=== PATIENT | female | born 1950 | race Caucasian/White ===

== ENCOUNTER → 2016-04-01 | Outpatient (CLI) | payer BC, OTHER ==
[~2016-04-01] MED LIST: ASPI81TA28 PO; Brimonidine Tartrate OPR; CETI10TA84 PO; CZR50 PO; INSDGI SC; INSU1INJ2; INSUINJ14 SC; LPD600 PO; METO1TAB69 PO; METO50TA7 PO; MRLP17 PO; NEPA0.6D OP; NEPAFENAC 0.3% OP; NRN100 PO; OMEG-54 PO; OMEP40CA41 PO; ONDA8TAB62 SL; PRDFOPS OPR; PREDNISOLONE OPR; RXC5 PO; TOLT2TAB9 PO
--- NOTE | 2016-04-01 14:48 | DIAGNOSTIC IMAGING REPORT ---
IV PYELOGRAM CLINICAL HISTORY: Nephrolithiasis. COMPARISON STUDY: Abdominal CT dated 03/29/2016. TECHNIQUE: An abdominal pay agent radiograph is performed. IVP pyelogram was then performed following the IV administration of IV contrast, tomographic images are acquired in the corticomedullary and excretory phases of enhancement. Overhead views of the renal collecting system and bladder were obtained in multiple obliquities both pre and post void. FINDINGS: The abdominal pay agent radiograph shows a nonobstructed abdominal bowel gas pattern. Numerous calcified phleboliths are seen in the pelvis. There is no clear radiographic evidence of nephrolithiasis. There is mild lumbosacral spondylosis. Following contrast administration there is symmetric renal cortical enhancement and contrast excretion. There is no hydronephrosis. There are no filling defects identified to suggest urothelial lesion within the renal pelvis bilaterally or along the course of the ureters. The bladder is normal as imaged. No significant post void residual is identified. IMPRESSION: 1. There is no evidence of nephrolithiasis. 2. Unremarkable IV pyelogram. See above. Electronically signed by: Jason Engle M.D. 04/01/2016 2:46 PM
== END | disposition home or self-care (01) ==
LOC: C.RAD 13:19
PROVIDERS: ATTEND Nurse Practitioner Family
DX: N20.0 Calculus of kidney (principal)

== ENCOUNTER → 2016-09-03 | Outpatient (CLI) | payer OTHER ==
[~2016-09-03] MED LIST changes: -Brimonidine Tartrate OPR; +METO100T44 PO; -METO1TAB69 PO; -NEPAFENAC 0.3% OP; -PRDFOPS OPR
--- NOTE | 2016-09-03 10:58 | DIAGNOSTIC IMAGING REPORT ---
RIGHT LOWER EXTREMITY VENOUS DOPPLER CLINICAL HISTORY: Right leg pain and swelling. COMPARISON STUDY: Bilateral lower extremity venous Doppler October 05, 2014. TECHNIQUE: Sonography of the deep venous system of the right lower extremity was performed. Compression and augmentation were evaluated. FINDINGS: The right common femoral, superficial femoral and popliteal veins were compressible. Augmentation was normal. Flow was shown within the deep calf vessels. IMPRESSION: No evidence of deep venous thrombus within the right lower extremity. Electronically signed by: Keegan Armijo M.D. 09/03/2016 10:56 AM Dictated Date/Time: 09/03/2016 10:56 AM
== END | disposition home or self-care (01) ==
LOC: C.ULTRBC 10:13
PROVIDERS: ATTEND Internal Medicine
DX: M79.605 Pain in left leg (principal)

== ENCOUNTER 2016-09-09 17:16 | Emergency (ER) | payer OTHER ==
[~2016-09-09] VITALS: Ht 160 cm; Wt 88.0 kg
[~2016-09-09 17:16] MED LIST changes: -ASPI81TA28 PO; -CETI10TA84 PO; -INSU1INJ2; -METO50TA7 PO; -NRN100 PO; -OMEP40CA41 PO; -TOLT2TAB9 PO
[2016-09-09 17:25] VITALS: O2SAT 97; Ht 160 cm; Wt 88.0 kg
[2016-09-09] MEDS ORDERED: SODIUM CHLORIDE 0.9% 1000ML 1,000 ML IV STA (17:30)
[2016-09-09] MEDS ORDERED: NALOXONE HCL 0.4 MG/1 ML VIAL/CARP IV STA (17:30)
--- NOTE | 2016-09-09 17:38 | EMERGENCY ROOM VISIT NOTE ---
History Report prepared by Kelsea: Sharon Kirk Under the Supervision of: Dr. Kate Lujan M.D. First contact with patient: 17:26 Chief Complaint: OVERDOSE (ACCIDENTAL) Stated Complaint: ALLERGIC REACTION History of Present Illness The patient is a 66 year old female who presents to the Emergency Room with complaints of a sudden accidental overdose that occurred just prior to arrival. Per nursing staff, the patient has a history of sciatica and is prescribed Zanaflex for her symptoms. Nursing staff reports that the patient was at work today and took two Zanaflex and fell asleep at work. Nursing staff reports that 911 was called at the patient's workplace and she was transferred here via BLS. The patient reports that she took her Metoprolol today. She states that she additionally takes a medication for her urinary incontinence. The patient denies any vomiting, diarrhea, urinary symptoms, or recent illness. She denies taking any other medications today. Source of History: patient, nursing staff Onset: prior to arrival Position: other (global) Quality: other (overdose, accidental) Timing: other (sudden) Associated Symptoms: No vomiting, No diarrhea, No urinary symptoms Review of Systems See HPI for pertinent positives & negatives. A total of 10 systems reviewed and were otherwise negative. Past Medical & Surgical Medical Problems: (1) Diabetes (2) Glaucoma (3) HTN (hypertension) (4) Intrinsic ureteral obstruction Surgical Problems: (1) H/O: hysterectomy Family History Diabetes mellitus FHx: congestive heart failure FHx: stroke Hypertension Social History Smoking Status: Unknown if Ever Smoked Alcohol Use: none Marital Status: Housing Status: lives alone Occupation Status: employed Current/Historical Medications Scheduled Aspirin (Aspirin Ec), 81 MG PO DAILY Cetirizine (Zyrtec), 10 MG PO DAILY Gabapentin (Gabapentin), 100 MG PO UD Gemfibrozil (Gemfibrozil), 600 MG PO BID Insulin Glargine (Lantus), 25 UNITS SC BID Metoprolol Succ (Toprol Xl) (Toprol-Xl), 50 MG PO BID Qpoxk-5-Name Ethyl Esters (Wnsdq-3-Odqr Ethyl Esters 1 gm), 2 CAP PO BID Omeprazole (Prilosec), 40 MG PO DAILY Tolterodine Tartrate (Tolterodine Tartrate), 2 MG PO BID Scheduled PRN Ondansetron Odt (Zofran Odt), 8 MG SL Q6H PRN for Nausea Oxycodone HCl (Oxycodone HCl), 5 MG PO Q4H PRN for Pain Miscellaneous Medications Insulin Aspart (Novolog Penfill) Allergies Coded Allergies: Niacin (Unverified Allergy, Severe, hives, 09/09/16) Physical Exam Vital Signs Date Time Temp Pulse Resp B/P (MAP) Pulse Ox O2 Delivery O2 Flow Rate FiO2 09/09/16 22:27 36.8 52 16 179/61 98 09/09/16 21:36 48 09/09/16 19:58 56 16 109/63 96 Room Air 09/09/16 18:30 59 18 172/62 96 Room Air 09/09/16 17:29 49 09/09/16 17:25 97 Room Air 09/09/16 17:25 36.6 54 16 153/68 97 Room Air Physical Exam Vital signs reviewed. General: Somnolent female, arouses to verbal stimuli, in no significant distress. HEENT: No scleral icterus, PERRLA, neck supple. Atraumatic. Cardiovascular: Regular rate and rhythm, no extra sounds. Pulmonary: Clear to auscultation bilaterally, normal work of breathing. Abdomen: Obese. Soft, nontender, nondistended, positive bowel sounds. Musculoskeletal: Atraumatic, no peripheral edema. Neurologic: Patient somnolent but easily arousable, oriented x 3, full strength in all 4 extremities. Cranial nerves 2 through 12 grossly intact. Skin: Warm, dry, no rash Medical Decision & Procedures Laboratory Results 09/09/16 17:45 Red Blood Count 4.86, Mean Corpuscular Volume 80.0, Mean Corpuscular Hemoglobin 28.2, Mean Corpuscular Hemoglobin Concent 35.2, Mean Platelet Volume 9.2, Neutrophils (%) (Auto) 71.0, Lymphocytes (%) (Auto) 22.5, Monocytes (%) (Auto) 4.3, Eosinophils (%) (Auto) 1.6, Basophils (%) (Auto) 0.3, Neutrophils # (Auto) 5.51, Lymphocytes # (Auto) 1.74, Monocytes # (Auto) 0.33, Eosinophils # (Auto) 0.12, Basophils # (Auto) 0.02 6/12/17 17:45 Test 09/09/16 17:45 09/09/16 22:13 09/09/16 22:15 White Blood Count 7.74 K/uL (4.8-10.8) Red Blood Count 4.86 M/uL (4.2-5.4) Hemoglobin 13.7 g/dL (12.0-16.0) Hematocrit 38.9 % (37-47) Mean Corpuscular Volume 80.0 fL (80-100) Mean Corpuscular Hemoglobin 28.2 pg (25-34) Mean Corpuscular Hemoglobin Concent 35.2 g/dl (32-36) Platelet Count 264 K/uL (130-400) Mean Platelet Volume 9.2 fL (7.4-10.4) Neutrophils (%) (Auto) 71.0 % Lymphocytes (%) (Auto) 22.5 % Monocytes (%) (Auto) 4.3 % Eosinophils (%) (Auto) 1.6 % Basophils (%) (Auto) 0.3 % Neutrophils # (Auto) 5.51 K/uL (1.4-6.5) Lymphocytes # (Auto) 1.74 K/uL (1.2-3.4) Monocytes # (Auto) 0.33 K/uL (0.11-0.59) Eosinophils # (Auto) 0.12 K/uL (0-0.5) Basophils # (Auto) 0.02 K/uL (0-0.2) RDW Standard Deviation 36.2 fL (36.4-46.3) RDW Coefficient of Variation 12.4 % (11.5-14.5) Immature Granulocyte % (Auto) 0.3 % Immature Granulocyte # (Auto) 0.02 K/uL (0.00-0.02) Anion Gap 10.0 mmol/L (3-11) Est Creatinine Clear Calc Drug Dose 58.0 ml/min Estimated GFR () 68.3 Estimated GFR (Non- 59.0 BUN/Creatinine Ratio 20.6 (10-20) Calcium Level 8.7 mg/dl (8.5-10.1) Magnesium Level 2.0 mg/dl (1.8-2.4) Total Bilirubin 0.4 mg/dl (0.2-1) Direct Bilirubin < 0.1 mg/dl (0-0.2) Aspartate Amino Transf (AST/SGOT) 10 U/L (15-37) Alanine Aminotransferase (ALT/SGPT) 21 U/L (12-78) Alkaline Phosphatase 78 U/L (45-117) Total Protein 6.6 gm/dl (6.4-8.2) Albumin 3.5 gm/dl (3.4-5.0) Beta-Hydroxybutyric Acid 1.89 mg/dL (0.2-2.81) Thyroid Stimulating Hormone (TSH) 1.370 uIu/ml (0.300-4.500) Bedside Glucose 286 mg/dl (70-90) Urine Color YELLOW Urine Appearance CLEAR (CLEAR) Urine pH 5.0 (4.5-7.5) Urine Specific [place] 1.033 (1.000-1.030) Urine Protein NEG (NEG) Urine Glucose (UA) 3+ (NEG) Urine Ketones NEG (NEG) Urine Occult Blood NEG (NEG) Urine Nitrite NEG (NEG) Urine Bilirubin NEG (NEG) Urine Urobilinogen NEG (NEG) Urine Leukocyte Esterase NEG (NEG) Urine Opiates Screen NEG (NEG) Urine Methadone, Qualitative NEG (NEG) Urine Barbiturates NEG (NEG) Urine Phencyclidine (PCP) Level NEG (NEG) Ur Amphetamine/Methamphetamine NEG (NEG) MDMA (Ecstasy) Screen NEG (NEG) Urine Benzodiazepines Screen NEG (NEG) Urine Cocaine Metabolite NEG (NEG) Urine Marijuana (THC) NEG (NEG) Laboratory results per my review. Medications Administered Medications (Trade) Dose Ordered Sig/Pio Route Start Time Stop Time Status Last Admin Dose Admin Sodium Chloride 1,000 ml @ 150 mls/hr Q6H40M STAT IV 09/09/16 17:30 09/09/16 22:50 DC 09/09/16 17:51 150 MLS/HR Naloxone HCl (Narcan Inj) 0.4 mg NOW STAT IV 09/09/16 17:30 09/09/16 17:32 DC 09/09/16 17:51 0.4 MG Insulin Human Regular (novoLIN-R U-100 PER UNIT) 10 units NOW STAT SC 09/09/16 18:39 09/09/16 18:41 DC 09/09/16 19:08 10 UNITS Insulin Human Regular (novoLIN-R U-100 PER UNIT) 10 units NOW STAT SC 09/09/16 20:10 09/09/16 20:11 DC 09/09/16 20:18 10 UNITS Insulin Glargine (Lantus Solostar Pen) 25 unit NOW STAT SC 09/09/16 21:14 09/09/16 21:17 DC 09/09/16 21:51 25 UNIT Insulin Human Regular (novoLIN-R U-100 PER UNIT) 10 units NOW STAT SC 09/09/16 21:14 09/09/16 21:17 DC 09/09/16 21:50 10 UNITS ECG Indication: toxicologic Rate (beats per minute): 50 Rhythm: sinus bradycardia Findings: Q waves (Septal), T-wave inversion (Inferior), no acute ischemic change, no ectopy ED Course 1727: Past medical records reviewed. The patient was evaluated in room A12B. A complete history and physical examination was performed. 1729: Ordered Narcan Inj 0.4 mg IV, Sodium Chloride 1000 ml @ 150 mls/hr IV. 1838: Ordered Insulin Human Regular 10 units SC. 1953: I reevaluated the patient and she continues to rest comfortably. 2009: Ordered Insulin Human Regular 10 units SC. 2053: I reevaluated the patient and she is doing well. I discussed the exam findings with her and I discussed the treatment plan. She verbalized complete understanding and agreement. She is going to work on finding a ride home and then she will be ready for discharge. 2113: Ordered Insulin Human Regular 10 units Sc, Insulin Glargine 25 unit SC. Medical Decision Differential diagnosis: Etiologies such as metabolic, infection, hypoglycemia, electrolyte abnormalities , cardiac sources, intracerebral event, toxicologic, neurologic, as well as others were entertained. Medication Reconciliation: I attest that I have personally reviewed the patient' s current medication list. Blood Pressure Screening: Patient was found to have an elevated blood pressure and was referred to their primary doctor for recheck and further treatment. This patient was evaluated and appeared to be in no significant distress. She was given 0.4 mg of Narcan. There is no significant change in mental status. Patient was hydrated with normal saline solution. Laboratory work indicates a markedly elevated BS she. She was given several doses of subcutaneous regular insulin as well as her Lantus due this evening. It appears that the patient's Zanaflex has caused a sedation response. U tox is negative. The patient was informed of the findings. She will follow-up with her primary care physician for reevaluation this week. She was advised to stop taking the Zanaflex. Patient was discharged to the care of a friend. She will return to the ER for worsening of symptoms or any medical concerns. Impression Primary Impression: Accidental medication overdose Additional Impression: Hyperglycemia Scribe Attestation The scribe's documentation has been prepared under my direction and personally reviewed by me in its entirety. I confirm that the note above accurately reflects all work, treatment, procedures, and medical decision making performed by me. Departure Information Dispostion Home / Self-Care Referrals ProDarwin M.D. (PCP) Forms HOME CARE DOCUMENTATION FORM, IMPORTANT VISIT INFORMATION, WORK / SCHOOL INSTRUCTIONS Patient Instructions My [facility] Additional Instructions Diagnosis: Hyperglycemia, accidental medication overdose Avoid the Zanaflex in the future. Ibuprofen 600 mg every 6 hours as needed for pain with food. Please check your blood sugars frequently for the next 24 hours and resume your diabetes medications as prescribed. Follow closely with your primary care physician for reevaluation of your diabetes medications. Have your blood pressure rechecked. Return to the emergency department for worsening of symptoms or any medical concerns. Problem Qualifiers
[2016-09-09 17:59] LABS: BASO % 0.3 %; BASO ABS # 0.02 K/uL (0-0.2); COMPLETE YES; EOS % 1.6 %; HEMATOCRIT 38.9 % (37-47); IG% 0.3 %; LYMPH % 22.5 %; LYMPH ABS # 1.74 K/uL (1.2-3.4); MEAN CORPUSCULAR HEMOGLOBIN 28.2 pg (25-34); MEAN CORPUSCULAR HGB CONC 35.2 g/dl (32-36); MEAN PLATELET VOLUME 9.2 fL (7.4-10.4); MONO % 4.3 %; PLATELET COUNT 264 K/uL (130-400); RED BLOOD COUNT 4.86 M/uL (4.2-5.4); WHITE BLOOD COUNT 7.74 K/uL (4.8-10.8)
[2016-09-09] MEDS ORDERED: INSDGI SC (18:07)
[2016-09-09] MEDS ORDERED: INSU1INJ2 (18:07)
[2016-09-09] MEDS ORDERED: CETI10TA84 PO (18:13)
[2016-09-09] MEDS ORDERED: TOLT2TAB9 PO (18:13)
[2016-09-09] MEDS ORDERED: METO50TA7 PO (18:13)
[2016-09-09] MEDS ORDERED: OMEP40CA41 PO (18:13)
[2016-09-09] MEDS ORDERED: ASPI81TA28 PO (18:13)
[2016-09-09] MEDS ORDERED: NRN100 PO (18:13)
[2016-09-09 18:22] LABS: AST/SGOT 10 U/L (15-37); BLOOD UREA NITROGEN 20 mg/dl (7-18); BUN/CREATININE RATIO 20.6 (10-20); CALCIUM 8.7 mg/dl (8.5-10.1); CARBON DIOXIDE 26 mmol/L (21-32); CHLORIDE 102 mmol/L (98-107); CREATININE 0.99 mg/dl (0.60-1.20); GLUCOSE 441 mg/dl (70-99); POTASSIUM 4.3 mmol/L (3.5-5.1); SODIUM 138 mmol/L (136-145)
[2016-09-09 18:34] LABS: ALKALINE PHOSPHATASE 78 U/L (45-117)
[2016-09-09 18:39] LABS: ALT/SGPT 21 U/L (12-78); BETA-HYDROXYBUTYRATE 1.89 mg/dL (0.2-2.81)
[2016-09-09] MEDS ORDERED: NovoLIN-R INSULIN PER UNIT CHARGE SC STA ×3 (18:39→21:14)
[2016-09-09] MEDS ORDERED: INSULIN GLARGINE SOLOSTAR 100 UNITS/ML 3 ML PEN SC STA (21:14)
[2016-09-09 22:27] VITALS: BP 179/61; PULSE 52; TEMP 36.8; O2SAT 98
[2016-09-09 23:06] LABS: BENZODIAZEPINE, URINE NEG (NEG); COCAINE,URINE NEG (NEG); PHENCYCLIDINE, URINE NEG (NEG)
[2016-09-09 23:30] LABS: URINE APPEARANCE CLEAR (CLEAR); URINE BILIRUBIN NEG (NEG); URINE COLOR YELLOW; URINE NITRITE NEG (NEG); URINE SPECIFIC GRAVITY 1.033 (1.000-1.030); UROBILINOGEN NEG (NEG); ZZUR CULT IF INDIC CLEAN CATCH NO
[2016-09-09 23:33] LABS: MANUAL MICROSCOPIC REQUIRED? NO; REVIEW REQ? NO
== END 2016-09-09 22:29 | disposition home or self-care (01) ==
LOC: EDBD 17:16 → C.EDA 17:20
DX: T48.1X1A Poisoning by skeletal muscle relaxants [neuromuscular blocking agents], accidental (unintentional), initial encounter (principal); X58.XXXA Exposure to other specified factors, initial encounter; E11.65 Type 2 diabetes mellitus with hyperglycemia; H40.9 Unspecified glaucoma; I10 Essential (primary) hypertension; Z83.3 Family history of diabetes mellitus; Z82.49 Family history of ischemic heart disease and other diseases of the circulatory system; Z79.82 Long term (current) use of aspirin; Z79.899 Other long term (current) drug therapy

== ENCOUNTER → 2017-02-18 | Outpatient (CLI) | payer MEDICARE ==
[~2017-02-18] MED LIST changes: +ASPI81TA28 PO; +CETI10TA84 PO; -CZR50 PO; +INSU1INJ2; -INSUINJ14 SC; -METO100T44 PO; +METO50TA7 PO; -MRLP17 PO; -NEPA0.6D OP; +NRN100 PO; +OMEP40CA41 PO; -PREDNISOLONE OPR; +TOLT2TAB9 PO
--- NOTE | 2017-02-18 10:13 | DIAGNOSTIC IMAGING REPORT ---
R HAND MIN 3 VIEWS ROUTINE CLINICAL HISTORY: M79.641 right hand pain COMPARISON: None. DISCUSSION: No fractures or dislocations are visualized. There are no erosive or destructive changes. There are minimal osteoarthritic changes present. IMPRESSION: 1. No fractures or dislocations identified 2. No evidence of erosive disease. Electronically signed by: Krishna Mercedes M.D. 02/18/2017 10:12 AM Dictated Date/Time: 02/18/2017 10:11 AM
--- NOTE | 2017-02-18 10:14 | DIAGNOSTIC IMAGING REPORT ---
LEFT HAND 3 VIEWS CLINICAL HISTORY: Left hand pain. FINDINGS: 3 views of the left hand are obtained. No prior studies are available for comparison at the time of dictation. The skeletal structures are osteopenic. No fracture is seen. Minimal osteoarthritic change is seen at the first carpometacarpal and metacarpophalangeal joints. Minimal arthritic change is also seen at the interphalangeal joints, distal greater than proximal. No bony erosion is seen. The overlying soft tissues are within normal limits. IMPRESSION: Osteopenia and minimal arthritic change as above. No acute bony abnormality is seen in the left hand. Electronically signed by: Jason Engle M.D. 02/18/2017 10:12 AM Dictated Date/Time: 02/18/2017 10:11 AM
[2017-02-18 10:26] LABS: ALT/SGPT 21 U/L (12-78); AST/SGOT 13 U/L (15-37); BLOOD UREA NITROGEN 19 mg/dl (7-18); BUN/CREATININE RATIO 27.8 (10-20); C-REACTIVE PROTEIN 0.61 mg/dl (0-0.29); CALCIUM 8.8 mg/dl (8.5-10.1); CARBON DIOXIDE 26 mmol/L (21-32); CHLORIDE 102 mmol/L (98-107); CHOLESTEROL 253 mg/dl (0-200); CREATININE 0.68 mg/dl (0.60-1.20); GLUCOSE 211 mg/dl (70-99); POTASSIUM 3.8 mmol/L (3.5-5.1); RHEUMATOID FACTOR < 10.0 U/mL (0-15); SODIUM 136 mmol/L (136-145); TRIGLYCERIDES 431 mg/dl (0-150)
[2017-02-18 10:35] LABS: ALKALINE PHOSPHATASE 73 U/L (45-117); CHOLESTEROL/HDL RATIO 7.9; HDL CHOLESTEROL 32 mg/dl
[2017-02-18 10:44] LABS: ESTIMATED AVERAGE GLUCOSE 312 mg/dl; HA1C FLAG Normal (Normal)
== END | disposition home or self-care (01) ==
LOC: C.RAD 09:12
PROVIDERS: ATTEND Internal Medicine
DX: M79.641 Pain in right hand (principal); M79.642 Pain in left hand; E78.5 Hyperlipidemia, unspecified; M62.81 Muscle weakness (generalized); G62.9 Polyneuropathy, unspecified; E11.65 Type 2 diabetes mellitus with hyperglycemia; N20.0 Calculus of kidney; M85.842 Other specified disorders of bone density and structure, left hand

== ENCOUNTER → 2017-04-22 | Outpatient (CLI) | payer MEDICARE ==
--- NOTE | 2017-04-23 15:39 | MAMMOGRAPHY REPORT ---
BILATERAL DIGITAL SCREENING MAMMOGRAM TOMOSYNTHESIS WITH CAD: 04/22/2017 CLINICAL HISTORY: Routine screening. Patient has no complaints. TECHNIQUE: Breast tomosynthesis in addition to standard 2D mammography was performed. Current study was also evaluated with a Computer Aided Detection (CAD) system. COMPARISON: Comparison is made to exams dated: 01/02/2016 mammogram, 01/04/2015 mammogram, 12/20/2014 m ammogram, 12/07/2014 mammogram, 12/02/2013 mammogram, and 11/25/2012 mammogram - [facility]. BREAST COMPOSITION: There are scattered areas of fibroglandular density in both breasts. FINDINGS: There are stable postsurgical changes in the central/6:00 right breast. Stable asymmetrie s bilaterally. Mild vascular calcification and diffuse bilateral benign-appearing rodlike microcalci fications. No suspicious mass, architectural distortion or cluster of suspicious microcalcifications is seen. IMPRESSION: ACR BI-RADS CATEGORY 1: NEGATIVE There is no mammographic evidence of malignancy. A 1 year screening mammogram is recommended. The pa tient will receive written notification of the results. Approximately 10% of breast cancers are not detected with mammography. A negative mammographic report should not delay biopsy if a clinically suggestive mass is present. Jerilyn Varela M.D. ay/:04/22/2017 15:44:54 Income Tax Manager: Angelica [facility])([place]), [facility] letter sent: Normal 1/2 BI-RADS Code: ACR BI-RADS Category 1: Negative
== END | disposition home or self-care (01) ==
LOC: C.MAMM 09:22
PROVIDERS: ATTEND Internal Medicine
DX: Z12.31 Encounter for screening mammogram for malignant neoplasm of breast (principal)

== ENCOUNTER 2024-11-12 06:48 | Observation (INO) ==
--- NOTE | 2024-11-12 07:40 | History & Physical Bridge Note ---
Date of Service November 12, 2024 History & Physical Bridge Note I have examined the patient, reviewed the History & Physical and in the interval since the performance of the History & Physical I have noted the following changes of clinical significance: no changes noted
--- NOTE | 2024-11-12 07:40 | Pre Anesthesia Assessment ---
Date of Service November 12, 2024 Pre Sedation Assessment Vital Signs Pulse Resp BP Pulse Ox O2 Del Method 11/12/24 07:04 63 16 182/53 H 98 Room Air Cardiovascular + regular rate Respiratory + respiratory effort normal Pre-Sedation Airway Assessment Smoking Status: Never smoker Short, Thick Neck: No Thyromental Distance: < 3.5 Finger Breadths Oral Cavity: + WNL Mallampati Class: II ASA: ASA2 NPO Status Date of Last Intake of Fluids: 11/11/24 Time of Last Intake of Fluids: 17:00 Date of Last Intake of Solid Food: 11/11/24 Time of Last Intake of Solid Foods: 17:00 Procedure Planning Contraindications for Sedation: none Current Medications Reviewed: Yes Notes The planned sedation has been discussed with the patient. Informed Consent was obtained. I have identified the patient, determined the appropriateness of sedation and have assessed the patient immediately prior to the procedure. All medicine(s) and interventions are by my order.
[2024-11-12] MEDS: LIDOCAINE 1% LOCAL 20 ML VIAL ONE (11:47)
[2024-11-12] MEDS: MIDAZOLAM HCL 1 MG/ML 2ML VIAL ONE ×2 (11:47→11:48)
[2024-11-12] MEDS: HEPARIN (PORCINE) 1000 UNIT/ML 10 ML (CATH LAB USE ONLY) ONE (11:48)
[2024-11-12] MEDS: diphenhydrAMINE 50 MG/ML VIAL ONE (11:48)
[2024-11-12] MEDS: CLOPIDOGREL BISULFATE 300 MG TAB ONE (12:05)
--- NOTE | 2024-11-12 12:06 | Post Anesthesia Assessment ---
Date of Service November 12, 2024 Post Sedation Assessment Vital Signs Pulse Resp BP Pulse Ox O2 Del Method 11/12/24 07:04 63 16 182/53 H 98 Room Air Recovery Score Activity: Moves 4 extremities Respiration: Deep Breath/Cough Circulation: +/-20% PreAnes Value Consciousness: Fully Awake Oxygen Saturation: O2 needed for >90% Discharge Sedation Level of Care: Fast Track Phase II
--- NOTE | 2024-11-12 12:17 | Endovascular Procedure Note ---
PG Endovascular Procedure Rpt Pre & Post Diagnosis Peripheral arterial disease Rest pain/critical limb ischemia I identified the patient and participated in the time-out.: Yes Procedure Operation Date: 11/12/24 08:00 Actual Procedures p Angio Extremity Bilateral - Bruno Watson MD Surgeon Bruno Watson MD General Manager In Training Paddy Estimated Blood Loss 50 Findings See Below Abdominal aorta--no significant aneurysmal or stenotic disease. Renal arteries patent bilaterally Right lower extremity-- -Common iliacnot well-visualized, appears widely patent -External iliacnot well-visualized, appears widely patent -RECREATION WORKER, profunda widely patent -SFAsmall, calcified, 90% distal disease -Popliteal small, 70% mid stenosis -ATApatent proximally -FCY405% occluded Left lower extremity-- -Common iliacwidely patent -External iliacwidely patent -Internal iliacwidely patent -RECREATION WORKER, profunda widely patent -SFAcalcified, proximal/mid luminal irregularities. 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 Selective angiography with quick cross catheter placed in left mid SFA 6 Fr 65 cm destination sheath placed from right RECREATION WORKER to left mid SFA. Distal SFA disease and proximal left popliteal occlusion crossed with glide advantage wire and quick cross support catheter. Injection through recross confirmed distal intraluminal position and widely patent two-vessel distal runoff [place] advantage exchanged for 0.14 BMW wire Huang IVUS catheter placed to peroneal. Pullback revealed severe distal popliteal stenosis and severe proximal popliteal/distal SFA disease with atherosclerotic plaque/thrombus Rotational excisional atherectomy performed with Rotarex device with multiple passes Angioplasty of distal SFA/proximal to mid popliteal with 5.0 balloon Distal to mid popliteal treated with 4.0 x 100 mm Lutonix drug-eluting balloon Distal SFA to mid popliteal treated with 5.0 x 100 mm Lutonix drug-eluting balloon Repeat IVUS confirmed large vessel dissection extending from distal SFA to proximal popliteal. Also with residual stenosis/questionable nonlimiting dissection and distal popliteal Proximal popliteal back to mid SFA treated with single Supera stent (5.5 x 100) Stent postdilated with 6.0 balloon Post procedure good angiographic result, stent was expanded with brisk flow and two-vessel runoff to the foot via MATILDE/peroneal. Residual small nonflow limiting dissection at distal popliteal. Contrast used: 110 Moderate sedation: [id number] Access closure: Angio-Seal Summary: 1. Left lower extremity --90% distal SFA, 100% acute on chronic proximal popliteal short occlusion, 90% distal popliteal. Widely patent two-vessel runoff to the foot via MATILDE, peroneal (MATE RELIEF occluded). 2. Right lower extremity --90% distal SFA, 70% mid popliteal stenosis. Single- vessel runoff via MATILDE (TPT occluded). 3. Successful endovascular intervention to left distal SFA to distal popliteal with mechanical atherectomy (Rotarex), 2 JADE (5.0 x 100, 4.0) and Supera stent (5.5 x 100 mid pop-distal SFA). Recommendations: Continue DAPT with ASA/Clopidogrel for 1 months Follow-up non-invasive vascular testing in 2 weeks. Plan for likely right SFA/popliteal intervention sometime next month. I attest to the content of the Intraoperative Record and any orders documented therein. Any exceptions are noted below. Vascular Charges Angiography/Venography Procedure 1: Angiography/Venography charges: [id number] Aortography, abd + b/l iliofem LE, catheter, radiological S&I Procedure 2: Angiography/Venography charges: [id number] Initial 3rd order or selective abd, pelvic, or LE branch Lower Extremity Interventions Procedure 1: Lower Extremity Intervention charges: [id number] Stent plcmt + atherectomy, femoral, popliteal artery, unilateral Additional Services Procedure 1: Additional Services Charges: 95037 Intravascular ultrasound; initial noncoronary vessel Procedure 2: Additional Services Charges: 81046 Ultrasound guidance - vascular access Procedure 3: Additional Services Charges: 51349 Moderate sedation initial 15 min Procedure 4: Additional Services Charges: 55041 Moderate sedation, each additional 15 min
[2024-11-12] MEDS ORDERED: GLUCOSE 10 TAB/TUBE PO PRN (17:23)
[2024-11-12] MEDS ORDERED: PHARMACY GLYCEMIC MGMT CONSULT PRN (17:23)
[2024-11-12] MEDS ORDERED: DEXTROSE 50% 50 ML SYRINGE IV PRN (17:23)
[2024-11-12] MEDS ORDERED: GLUCAGON FOR INJ 1 MG VIAL SQ PRN (17:23)
[2024-11-12] MEDS ORDERED: GLUCOSE 40% GEL 15 GM TUBE PO PRN (17:23)
[2024-11-12] MEDS ORDERED: CARBOHYDRATES FOR HYPOGLYCEMIA PO PRN (17:23)
[2024-11-12] MEDS ORDERED: NON-FORMULARY MEDICATION (Pen Needle, Diabetic [Bd Nano 2nd Gen Pen Needle] 32 gauge x 5/3 SCH (17:30)
[2024-11-12] MEDS: ATROPINE SULFATE 0.1 MG/ML 10ML SYR IV ONE (18:15)
[2024-11-12] MEDS: INSULIN ASPART PER UNIT CHARGE SC SCH (18:40)
[2024-11-12] MEDS: METOPROLOL SUCC 50MG EXT REL TAB PO SCH (20:35)
[2024-11-12] MEDS: LANTUS PER UNIT CHARGE SC SCH (20:42)
[2024-11-12] MEDS: ACETAMINOPHEN 325 MG TAB PO PRN (21:11)
[2024-11-12] MEDS: DICLOFENAC SOD 1% GEL 100 GM TUBE EXT PRN (21:12)
[2024-11-13 07:18] VITALS: RESP 20; TEMP 98.1
[2024-11-13] MEDS: LOSARTAN POTASSIUM 50 MG TAB PO SCH (08:14)
[2024-11-13] MEDS: FOLIC ACID 1 MG TAB PO SCH (08:15)
[2024-11-13] MEDS: ATORVASTATIN 40 MG TAB PO SCH (08:15)
[2024-11-13] MEDS: ASPIRIN 81 MG ECTAB PO SCH (08:15)
[2024-11-13] MEDS: OXYBUTYNIN CHLORIDE XL 5 MG TABCR PO SCH (08:17)
[2024-11-13] MEDS ORDERED: EMPAGLIFLOZIN 10 MG TAB PO SCH (09:00)
[2024-11-13 11:28] VITALS: BP 173/68; PULSE 66; O2SAT 98
[2024-11-13] MEDS: CLOPIDOGREL BISULFATE 75 MG TAB PO ONE (12:14)
--- NOTE | 2024-11-14 09:37 | Discharge Summary ---
Date of Service November 13, 2024 Admission HPI Per Admitting Provider Mrs. Velarde is a pleasant 74 year old female with PAD, history of DVT, uncontrolled type 2 diabetes, dyslipidemia, hypertension, rheumatoid arthritis, GERD and neuropathy. She was seen by vascular medicine acutely 10/19/2024 in the setting of acute left leg pain. States her pain started about one month ago. Initially she was just experiencing left calf pain when walking. Her pain has progressed and now she has a degree of left calf pain constantly. It continues to be worse with walking and she cannot go very far before having limiting discomfort. She also had pain at night making it difficult to sleep. Denies injury. No right leg pain. No lower extremity ulcers. Due to her pain presented to [facility] ED 10/17/24. Arterial duplex reviewed. ?SFA/popliteal disease. Arterial duplex in our office today reviewed. She has hemodynamically significant stenosis in the left popliteal artery with velocities >600 cm/s. Downstream dampened flow, [employer]RAVER [employer]AMES occluded. Vascular history: Patient initially seen in consultation in the setting of toe discoloration and an abnormal arterial duplex study. This was notable for at least moderate stenosis of right popliteal artery with occlusion of the TPT trunk, single v essel runoff via MATILDE (occluded PT, peroneal). Left lower extremity with occluded prox/mid [employer]AMES. Presented to [facility] ED in May 2023 with right leg pain, swelling. Venous duplex noted thrombus in posterior tibial, peroneal veins. She was initiated on Eliquis. She seen again a week later for continued symptoms and a repeat duplex showed no DVT but thrombus of the right GSV. No prior history of DVT. No surgery, travel or trauma. She was taking a vitamin K supplement which she has since stopped. 6 months of anticoagulation was recommended Family history: mother and father from heart disease in their 80s. Social history: Lives alone. 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 No tobacco, alcohol or drug use. Discharge Data Procedures Performed Operation Date: 11/12/24 08:00 Actual Procedures p Angio Extremity Bilateral - Bruno Watson MD p IVUS Non Cors - Bruno Watson MD p Bare Metal Stent SGL Vessel - Bruno Watson MD p Fem Pop Balloon Atherectomy - Bruno Watson MD Hospital Course (1) PAD (peripheral artery disease): Holding area and left foot was cleaned with non-dopplerable pulses. She endorsed severe rest pain that was keeping her from sleeping and limiting am bulation. She underwent left lower extremity angiogram via right CASTING SUPERVISOR. Findings: 1. Left lower extremity --90% distal SFA, 100% acute on chronic proximal popliteal short occlusion, 90% distal popliteal. Widely patent two-vessel runoff to the foot via MATILDE, peroneal (ENGRAVER [employer] FRAMES occluded). 2. Right lower extremity --90% distal SFA, 70% mid popliteal stenosis. Single- vessel runoff via MATILDE (TPT occluded). 3. Successful endovascular intervention to left distal SFA to distal popliteal with mechanical atherectomy (Rotarex), 2 JADE (5.0 x 100, 4.0) and Supera stent (5.5 x 100 mid pop-distal SFA). Following procedure significant improvement left foot coloration, warmth and DP/PT pulses dopplerable. She continues to have severe left foot was admitted for observation for pain control. Pain was felt to be secondary to extended period of critical limb ischemia and it was thought would continue to improve with time post successful endovascular intervention. Overnight pain persisted but somewhat improved in morning. 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 Discharged on DAPT with aspirin, clopidogrel. She was started on amlodipine for blood pressure and metoprolol was increased from 50 to 100 mg twice daily. Discharged with Tylenol and 14 pills of 5 mg oxycodone. Follow-up with vascular medicine in 1 week. Plan Home Medications aspirin 81 mg tablet,delayed release (Aspir-) 81 mg PO DAILY 05/03/18 [History Confirmed 11/13/24] folic acid 1 mg tablet 1 mg PO DAILY #90 tabs 10/04/20 [Rx Confirmed 11/13/24] cetirizine 10 mg tablet (Zyrtec) 10 mg PO DAILY PRN ALLERGIES 01/04/21 [History Confirmed 11/13/24] blood-glucose sensor (Dexcom G6 Sensor device) #3 ea 04/10/21 [Rx Confirmed 11/12/24] blood-glucose transmitter (Dexcom G6 Transmitter device) #1 ea 04/10/21 [Rx Confirmed 11/12/24] blood-glucose,nursing service administrator,cont (Dexcom G6 Site Supervising Technical Operator) #1 ea 01/11/22 [Rx Confirmed 11/12/24] insulin glargine 100 unit/mL (3 mL) subcutaneous pen (Lantus Solostar U-100 Insulin) 15 - 40 unit (0.15 - 0.4 mL) subcut BID #15 mL 09/14/21 [Rx Confirmed 11/13/24] ketoconazole 2 % shampoo 1 applic topical .COMPLEX #120 mL 11/29/21 [Rx Confirmed 11/13/24] pen needle, diabetic 32 gauge x 5/32" (BD Dominique 2nd Gen Pen Needle) #450 ea 06/04/22 [Rx Confirmed 11/12/24] metronidazole 0.75 % topical cream 1 applic topical DAILY #135 grams 04/11/23 [Rx Confirmed 11/13/24] methotrexate sodium 2.5 mg tablet 15 mg (6 x 2.5 mg) PO WEEKLY #78 tabs 08/20/23 [Rx Confirmed 11/13/24] atorvastatin 40 mg tablet 40 mg PO DAILY #90 tabs 11/04/23 [Rx Confirmed 11/13/24] tolterodine 2 mg tablet 2 mg PO BID #180 tabs 11/04/23 [Rx Confirmed 11/13/24] icosapent ethyl 1 gram capsule 2 g (2 x 1 gram) PO BID #360 caps 02/17/24 [Rx Confirmed 11/13/24] tirzepatide 15 mg/0.5 mL subcutaneous pen injector 15 mg (0.5 mL) subcut Q7D #6 mL 07/09/24 [Rx Confirmed 11/13/24] losartan 100 mg tablet 100 mg PO DAILY #90 tabs 08/04/24 [Rx Confirmed 11/13/24] empagliflozin 10 mg tablet 10 mg PO DAILY #90 tabs 08/05/24 [Rx Confirmed 11/13/24] tretinoin 0.05 % topical cream (Retin-A) 1 applic topical .COMPLEX #45 grams 08/05/24 [Rx Confirmed 11/13/24] diclofenac sodium 1 % topical gel (Voltaren Arthritis Pain) 2 g topical QID PRN Other 10/17/24 [History Confirmed 11/13/24] doxycycline hyclate 50 mg capsule 50 mg PO DAILY #90 caps 10/26/24 [Rx Confirmed 11/13/24] fluorouracil 5 % topical cream 1 applic topical .COMPLEX #5 grams 10/26/24 [Rx Confirmed 11/13/24] mometasone 0.1 % topical cream 1 applic topical BID #45 grams 10/26/24 [Rx Confirmed 11/13/24] acetaminophen 325 mg tablet 650 mg (2 x 325 mg) PO Q4H PRN pain #30 tabs 11/13/24 [Rx Confirmed 11/13/24] amlodipine 5 mg tablet 5 mg PO QAM #30 tabs 11/13/24 [Rx Confirmed 11/13/24] clopidogrel 75 mg tablet 75 mg PO DAILY #30 tabs 11/13/24 [Rx Confirmed 11/13/24] metoprolol succinate 50 mg tablet,extended release 24 hr 100 mg (2 x 50 mg) PO BID #0 tabs 11/13/24 [Rx Confirmed 11/13/24] oxycodone 5 mg tablet 5 mg PO Q4H PRN pain #14 tabs 11/13/24 [Rx Confirmed 11/13/24] Coding Level of Care Code 71644 IN/OBS DISCH 30 MIN/LESS Diagnoses PAD (peripheral artery disease) I73.9
== END 2024-11-13 13:16 | disposition home or self-care (01) | DRG 270 ==
LOC: CC 06:48 → 2S 16:27 → INTOOBSV 16:27
PROC: CLB.AEB (2024-11-12 08:00)